=== PATIENT | female | born 1975 | race Caucasian/White ===

== ENCOUNTER 2021-08-21 17:56 | Inpatient (IN) ==
[2021-08-21] MEDS: *HR* OxyCODONE Immed Rel 5 MG TABLET PO PRN (21:58)
[2021-08-21] MEDS: Lactulose Oral Soln 20 GM/30 ML UDC PO SCH (21:58)
[2021-08-22] MEDS: *HR* Enoxaparin 40 MG/0.4 ML SYRINGE SQ SCH (05:05)
[2021-08-22 05:22] LABS: Basophils # 0.1 K/mcL (0.0-0.2); Basophils % 1.8 %; Eosinophils # 0.2 K/mcL (0.0-0.6); Eosinophils % 5.5 %; Hematocrit 25.6 % (35.3-44.9); Hemoglobin 8.1 g/dL (11.5-15.4); Lymphocytes # 0.9 K/mcL (0.6-4.6); Lymphocytes % 34.2 %; Mean Corpuscular HGB Conc 31.6 g/dL (31.6-35.5); Mean Corpuscular Hemoglobin 33.5 pg (28.0-33.3); Mean Corpuscular Volume 105.8 fL (83.0-100.0); Mean Platelet Volume 9.1 fL (9.4-12.4); Monocytes # 0.4 K/mcL (0.0-1.3); Monocytes % 15.1 %; Neutrophils # 1.2 K/mcL (1.6-8.9); Platelet Count 266 K/mcL (140-400); Red Blood Count 2.42 M/mcL (3.82-4.97); Red Cell Distribution Width 17.2 % (11.5-14.5); Segmented Neutrophils % 43.4 %; White Blood Count 2.7 K/mcL (4.3-11.1)
[2021-08-22 05:32] LABS: BUN/Creatinine Ratio 4 (6-26); Blood Urea Nitrogen 2 mg/dL (6-20); Calcium 8.7 mg/dL (8.6-10.3); Carbon Dioxide 29 mEq/L (23-29); Chloride 106 mEq/L (98-107); Glucose 121 mg/dL (70-105); Osmolality,Calculated 287 (280-300); Potassium 3.8 mEq/L (3.5-5.1); Sodium 140 mEq/L (136-145); eGFR For African Americans > 60 (> 60); eGFR For Non-African Americans > 60 (> 60)
[2021-08-22] MEDS: *HR* OxyCODONE Immed Rel 5 MG TABLET PO PRN ×4 (05:51→20:06)
[2021-08-22] MEDS ORDERED: Estradiol 0.1 MG PATCH (WEEKLY) TP SCH (09:00)
[2021-08-22] MEDS ORDERED: CEFADROXIL 500 MG PO SCH (09:00)
[2021-08-22] MEDS: Ascorbic Acid 500 MG TABLET PO SCH ×2 (10:05→18:07)
[2021-08-22] MEDS: Aspirin Enteric Coated 81 MG Tablet PO SCH ×2 (10:06→20:05)
[2021-08-22] MEDS: Lactobacillus 1 EACH CAP.SPRINK PO SCH ×2 (10:06→20:05)
[2021-08-22] MEDS: Multivit/Ca/Min/Fe/FA 1 TAB TABLET PO SCH (10:06)
[2021-08-22] MEDS: Spironolactone 25 MG TABLET PO SCH (10:07)
[2021-08-22] MEDS: Gabapentin 300 MG CAPSULE PO SCH ×3 (10:07→20:05)
[2021-08-22] MEDS: Folic Acid 1 MG TABLET PO SCH (10:07)
[2021-08-22] MEDS: Nystatin POWDER 30 GM BOTTLE TP SCH ×2 (10:07→15:19)
[2021-08-22] MEDS: Magnesium Oxide 400 MG TABLET PO SCH (10:07)
[2021-08-22] MEDS: Lactulose Oral Soln 20 GM/30 ML UDC PO SCH ×3 (10:08→20:05)
[2021-08-22] MEDS: UPADACITINIB 15 MG PO SCH (10:09)
[2021-08-22] MEDS ORDERED: Bisacodyl 10 MG RECTAL SUPPOSITORY RC PRN (10:46)
[2021-08-22] MEDS: Sennosides/Docusate Sodium TABLET PO SCH ×2 (13:17→20:09)
[2021-08-22] MEDS: cephALEXin 500 MG CAPSULE PO SCH ×2 (14:25→20:05)
[2021-08-22] MEDS: Estradiol 0.1 MG PATCH (WEEKLY) TP SCH (18:08)
[2021-08-22] MEDS: MOM Conc 10 ML UD.LIQ PO SCH (20:05)
[2021-08-23] MEDS: *HR* Enoxaparin 40 MG/0.4 ML SYRINGE SQ SCH (04:21)
[2021-08-23 04:41] LABS: Hematocrit 26.4 % (35.3-44.9); Hemoglobin 8.4 g/dL (11.5-15.4); Mean Corpuscular HGB Conc 31.8 g/dL (31.6-35.5); Mean Corpuscular Hemoglobin 33.1 pg (28.0-33.3); Mean Corpuscular Volume 103.9 fL (83.0-100.0); Mean Platelet Volume 9.8 fL (9.4-12.4); Platelet Count 246 K/mcL (140-400); Red Blood Count 2.54 M/mcL (3.82-4.97); Red Cell Distribution Width 16.5 % (11.5-14.5); White Blood Count 3.4 K/mcL (4.3-11.1)
[2021-08-23 04:58] LABS: Alanine Aminotransferase 15 Units/L (7-52); Albumin 3.3 g/dL (3.5-5.7); Albumin/Globulin Ratio 1.3 (1.1-2.2); Alkaline Phosphatase 118 Units/L (34-104); Aspartate Amino Transferase 45 Units/L (13-39); BUN/Creatinine Ratio 4 (6-26); Bilirubin,Total 1.4 mg/dL (0.3-1.0); Blood Urea Nitrogen 2 mg/dL (6-20); Calcium 8.8 mg/dL (8.6-10.3); Carbon Dioxide 24 mEq/L (23-29); Chloride 107 mEq/L (98-107); Globulin 2.5 g/dL (2.4-3.5); Glucose 107 mg/dL (70-105); Osmolality,Calculated 283 (280-300); Sodium 138 mEq/L (136-145); Total Protein 5.8 g/dL (6.4-8.9); eGFR For African Americans > 60 (> 60); eGFR For Non-African Americans > 60 (> 60)
[2021-08-23] MEDS: *HR* OxyCODONE Immed Rel 5 MG TABLET PO PRN ×3 (07:41→20:29)
[2021-08-23] MEDS: Aspirin Enteric Coated 81 MG Tablet PO SCH ×2 (07:42→20:28)
[2021-08-23] MEDS: Lactobacillus 1 EACH CAP.SPRINK PO SCH ×2 (07:42→20:31)
[2021-08-23] MEDS: Gabapentin 300 MG CAPSULE PO SCH ×3 (07:42→20:29)
[2021-08-23] MEDS: Ascorbic Acid 500 MG TABLET PO SCH ×2 (07:42→17:59)
[2021-08-23] MEDS: Folic Acid 1 MG TABLET PO SCH (07:42)
[2021-08-23] MEDS: cephALEXin 500 MG CAPSULE PO SCH ×3 (07:42→20:31)
[2021-08-23] MEDS: Multivit/Ca/Min/Fe/FA 1 TAB TABLET PO SCH (07:42)
[2021-08-23] MEDS: Spironolactone 25 MG TABLET PO SCH (07:42)
[2021-08-23] MEDS: Sennosides/Docusate Sodium TABLET PO SCH ×2 (07:43→20:30)
[2021-08-23] MEDS: UPADACITINIB 15 MG PO SCH (07:43)
[2021-08-23] MEDS: Furosemide 20 MG TABLET PO SCH (12:01)
[2021-08-23] MEDS: Magnesium Oxide 400 MG TABLET PO SCH (12:01)
[2021-08-23] MEDS: Lactulose Oral Soln 20 GM/30 ML UDC PO SCH ×3 (12:02→20:31)
[2021-08-23] MEDS: MOM Conc 10 ML UD.LIQ PO SCH (20:31)
[2021-08-24] MEDS: *HR* OxyCODONE Immed Rel 5 MG TABLET PO PRN ×4 (01:32→21:49)
[2021-08-24] MEDS: *HR* Enoxaparin 40 MG/0.4 ML SYRINGE SQ SCH (05:36)
[2021-08-24] MEDS: Aspirin Enteric Coated 81 MG Tablet PO SCH ×2 (08:05→20:59)
[2021-08-24] MEDS: Furosemide 20 MG TABLET PO SCH (08:05)
[2021-08-24] MEDS: Sennosides/Docusate Sodium TABLET PO SCH ×2 (08:05→20:59)
[2021-08-24] MEDS: Lactobacillus 1 EACH CAP.SPRINK PO SCH ×2 (08:05→20:59)
[2021-08-24] MEDS: Spironolactone 25 MG TABLET PO SCH (08:05)
[2021-08-24] MEDS: Multivit/Ca/Min/Fe/FA 1 TAB TABLET PO SCH (08:05)
[2021-08-24] MEDS: Folic Acid 1 MG TABLET PO SCH (08:06)
[2021-08-24] MEDS: Magnesium Oxide 400 MG TABLET PO SCH (08:06)
[2021-08-24] MEDS: Lactulose Oral Soln 20 GM/30 ML UDC PO SCH ×3 (08:06→20:59)
[2021-08-24] MEDS: UPADACITINIB 15 MG PO SCH (08:06)
[2021-08-24] MEDS: Ascorbic Acid 500 MG TABLET PO SCH ×2 (08:06→16:36)
[2021-08-24] MEDS: Gabapentin 300 MG CAPSULE PO SCH ×3 (08:06→20:59)
[2021-08-24] MEDS: cephALEXin 500 MG CAPSULE PO SCH ×3 (08:06→21:00)
[2021-08-24] MEDS: Nystatin POWDER 30 GM BOTTLE TP PRN (18:52)
[2021-08-24] MEDS: MOM Conc 10 ML UD.LIQ PO SCH (20:59)
[2021-08-25 04:28] LABS: Hematocrit 27.1 % (35.3-44.9); Hemoglobin 8.6 g/dL (11.5-15.4); Mean Corpuscular HGB Conc 31.7 g/dL (31.6-35.5); Mean Corpuscular Hemoglobin 32.6 pg (28.0-33.3); Mean Corpuscular Volume 102.7 fL (83.0-100.0); Mean Platelet Volume 8.7 fL (9.4-12.4); Platelet Count 242 K/mcL (140-400); Red Blood Count 2.64 M/mcL (3.82-4.97); White Blood Count 3.8 K/mcL (4.3-11.1)
[2021-08-25] MEDS: *HR* Enoxaparin 40 MG/0.4 ML SYRINGE SQ SCH (04:28)
[2021-08-25 04:46] LABS: Alanine Aminotransferase 18 Units/L (7-52); Albumin 3.5 g/dL (3.5-5.7); Albumin/Globulin Ratio 1.3 (1.1-2.2); Alkaline Phosphatase 144 Units/L (34-104); Aspartate Amino Transferase 47 Units/L (13-39); BUN/Creatinine Ratio 6 (6-26); Bilirubin,Direct 0.4 mg/dL (0.0-0.2); Bilirubin,Indirect 0.9 mg/dL (0.0-1.0); Bilirubin,Total 1.3 mg/dL (0.3-1.0); Blood Urea Nitrogen 3 mg/dL (6-20); Calcium 9.1 mg/dL (8.6-10.3); Carbon Dioxide 27 mEq/L (23-29); Chloride 104 mEq/L (98-107); Globulin 2.7 g/dL (2.4-3.5); Glucose 110 mg/dL (70-105); Osmolality,Calculated 283 (280-300); Potassium 3.6 mEq/L (3.5-5.1); Sodium 138 mEq/L (136-145); Total Protein 6.2 g/dL (6.4-8.9); eGFR For African Americans > 60 (> 60); eGFR For Non-African Americans > 60 (> 60)
[2021-08-25] MEDS: Lactulose Oral Soln 20 GM/30 ML UDC PO SCH ×3 (08:13→21:17)
[2021-08-25] MEDS: Gabapentin 300 MG CAPSULE PO SCH ×3 (08:14→21:17)
[2021-08-25] MEDS: Lactobacillus 1 EACH CAP.SPRINK PO SCH ×2 (08:14→21:17)
[2021-08-25] MEDS: Aspirin Enteric Coated 81 MG Tablet PO SCH ×2 (08:14→21:18)
[2021-08-25] MEDS: Spironolactone 25 MG TABLET PO SCH (08:14)
[2021-08-25] MEDS: Ascorbic Acid 500 MG TABLET PO SCH ×2 (08:14→16:29)
[2021-08-25] MEDS: Multivit/Ca/Min/Fe/FA 1 TAB TABLET PO SCH (08:14)
[2021-08-25] MEDS: Sennosides/Docusate Sodium TABLET PO SCH ×2 (08:14→21:18)
[2021-08-25] MEDS: cephALEXin 500 MG CAPSULE PO SCH ×3 (08:15→21:18)
[2021-08-25] MEDS: *HR* OxyCODONE Immed Rel 5 MG TABLET PO PRN ×3 (08:15→21:32)
[2021-08-25] MEDS: Furosemide 20 MG TABLET PO SCH (08:15)
[2021-08-25] MEDS: Folic Acid 1 MG TABLET PO SCH (08:15)
[2021-08-25] MEDS: Magnesium Oxide 400 MG TABLET PO SCH (08:15)
[2021-08-25] MEDS: UPADACITINIB 15 MG PO SCH (08:15)
[2021-08-25] MEDS: Estradiol 0.1 MG PATCH (WEEKLY) TP SCH (14:39)
[2021-08-25] MEDS: Nystatin POWDER 30 GM BOTTLE TP PRN (16:32)
[2021-08-25] MEDS: MOM Conc 10 ML UD.LIQ PO SCH (21:17)
[2021-08-26] MEDS: *HR* Enoxaparin 40 MG/0.4 ML SYRINGE SQ SCH (05:02)
[2021-08-26] MEDS: *HR* OxyCODONE Immed Rel 5 MG TABLET PO PRN ×3 (05:07→21:20)
[2021-08-26] MEDS: Gabapentin 300 MG CAPSULE PO SCH ×3 (08:07→21:19)
[2021-08-26] MEDS: Furosemide 20 MG TABLET PO SCH (08:07)
[2021-08-26] MEDS: Magnesium Oxide 400 MG TABLET PO SCH (08:07)
[2021-08-26] MEDS: cephALEXin 500 MG CAPSULE PO SCH ×3 (08:07→21:19)
[2021-08-26] MEDS: Spironolactone 25 MG TABLET PO SCH (08:07)
[2021-08-26] MEDS: Folic Acid 1 MG TABLET PO SCH (08:07)
[2021-08-26] MEDS: Sennosides/Docusate Sodium TABLET PO SCH ×2 (08:07→21:19)
[2021-08-26] MEDS: Aspirin Enteric Coated 81 MG Tablet PO SCH ×2 (08:07→21:19)
[2021-08-26] MEDS: Multivit/Ca/Min/Fe/FA 1 TAB TABLET PO SCH (08:07)
[2021-08-26] MEDS: Lactobacillus 1 EACH CAP.SPRINK PO SCH ×2 (08:07→21:19)
[2021-08-26] MEDS: Ascorbic Acid 500 MG TABLET PO SCH ×2 (08:08→15:22)
[2021-08-26] MEDS: UPADACITINIB 15 MG PO SCH (08:08)
[2021-08-26] MEDS: Lactulose Oral Soln 20 GM/30 ML UDC PO SCH ×3 (08:08→21:18)
[2021-08-26 19:10] VITALS: PULSE 86
[2021-08-26] MEDS: MOM Conc 10 ML UD.LIQ PO SCH (21:18)
[2021-08-27] MEDS: *HR* Enoxaparin 40 MG/0.4 ML SYRINGE SQ SCH (05:31)
[2021-08-27] MEDS: *HR* OxyCODONE Immed Rel 5 MG TABLET PO PRN ×2 (05:32→12:31)
[2021-08-27 06:48] VITALS: BP 104/63; RESP 18; TEMP 98.1; O2SAT 95
[2021-08-27] MEDS: Multivit/Ca/Min/Fe/FA 1 TAB TABLET PO SCH (08:00)
[2021-08-27] MEDS: Magnesium Oxide 400 MG TABLET PO SCH (08:00)
[2021-08-27] MEDS: Aspirin Enteric Coated 81 MG Tablet PO SCH (08:00)
[2021-08-27] MEDS: Folic Acid 1 MG TABLET PO SCH (08:00)
[2021-08-27] MEDS: Lactobacillus 1 EACH CAP.SPRINK PO SCH (08:00)
[2021-08-27] MEDS: cephALEXin 500 MG CAPSULE PO SCH (08:00)
[2021-08-27] MEDS: Lactulose Oral Soln 20 GM/30 ML UDC PO SCH (08:01)
[2021-08-27] MEDS: Sennosides/Docusate Sodium TABLET PO SCH (08:01)
[2021-08-27] MEDS: UPADACITINIB 15 MG PO SCH (08:01)
[2021-08-27] MEDS: Ascorbic Acid 500 MG TABLET PO SCH (08:01)
[2021-08-27] MEDS: Furosemide 20 MG TABLET PO SCH (08:01)
[2021-08-27] MEDS: Gabapentin 300 MG CAPSULE PO SCH (08:01)
[2021-08-27] MEDS: Spironolactone 25 MG TABLET PO SCH (08:01)
== END 2021-08-27 15:47 | disposition home or self-care (01) | DRG 560 ==
LOC: INPGRE 20:33
PROVIDERS: ADMIT Family Medicine; ATTEND Family Medicine